=== PATIENT | male | born 1975 | race Caucasian/White ===

== ENCOUNTER → 2021-03-31 08:47 | Outpatient (CLI) | payer BC, SELFPAY ==
[2021-04-01 15:30] LABS: SARS-CoV-2 RNA PCR Positive
== END ==
PROVIDERS: PCP Physician Assistant; Visit Provider Physician Assistant
DX: U07.1 COVID-19 (principal)
CPT/HCPCS: C9803; U0003; U0005

== ENCOUNTER 2021-06-07 21:32 | Inpatient (IN) | payer BC, SELFPAY ==
--- NOTE | ~2021-06-07 | XR_ITS ---
XR chest 2V DATE: 06/07/2021 22:26 INDICATION: Chest pain, diaphoresis. Jaw pain. TECHNIQUE: PA and lateral views COMPARISON: 11/23/2010 portable AP chest FINDINGS: Heart size is normal. No hilar or mediastinal enlargement. No pulmonary infiltrate or consolidation, pleural effusion or pulmonary vascular congestion or pneumo thorax. There is thoracic and lumbar scoliosis. IMPRESSION: No active cardiopulmonary disease Reviewed, dictated and finalized at location A. UCTION SANITIZER
--- NOTE | ~2021-06-07 | US_ITS ---
EXAMINATION: US venous doppler [facility] DATE: 06/08/2021 09:59 INDICATION: Shortness of breath and chest pain TECHNIQUE: Carmen scale images without and with compression and Doppler images of the bilateral lower e xtremity veins were obtained. COMPARISON: None FINDINGS: The right common femoral vein, profunda femoral vein, femoral vein, popliteal vein, peroneal trunk, p osterior tibial veins, and greater saphenous vein are patent. The left common femoral vein, profunda femoral vein, femoral vein, popliteal vein, peroneal trunk, po sterior tibial veins, and greater saphenous vein are patent. IMPRESSION: 1. Patent bilateral lower extremity veins. No evidence of deep venous thrombosis. Reviewed, dictated and finalized at location B. MOGRAPHER IMPRESSION: 1. Patent bilateral lower extremity veins. No evidence of deep venous thrombosi s.
--- NOTE | ~2021-06-07 | CT_ITS ---
EXAMINATION: CTA chest PE protocol DATE: 06/08/2021 01:06 INDICATION: Chest pain. TECHNIQUE: Computed tomography angiography (CTA) of the chest was performed with 100 mL Omnipaque-350 intravenous contrast timed to evaluate the pulmonary arteries. Coronal maximum intensity projection 3D-reconstructions were created by the technologist. Automated exposure control and iterative reconst ruction technique were employed. The dose-length product was 832.67 mGy-cm. COMPARISON: CT abdomen and pelvis 03/31/2012 FINDINGS: The lungs demonstrate mild atelectasis. No pleural effusion. There is an 11 mm subcutaneous cyst in the superior anterior chest to the right of midline, likely a sebaceous cyst. There is a 1.9 cm mass in right tracheoesophageal groove. The heart size is normal. There are coronary artery calci fications. No pericardial effusion. There is an embolus in basilar right lower lobe. There is mild th oracic spondylosis. IMPRESSION: 1. Acute pulmonary embolus in basilar right lower lobe. 2. 1.9 cm mass in right tracheoesophageal groove. The differential diagnosis includes thyroid nodule and parathyroid adenoma. Correlate for laboratory evidence of hyperparathyroidism. Reviewed, dictated and finalized at location A. WORKER SUPERVISOR IMPRESSION: 1. Acute pulmonary embolus in basilar right lower lobe. 2. 1.9 cm mass in right tracheoesophageal groove. The differential diagnosis in cludes thyroid nodule and parathyroid adenoma. Correlate for laboratory evidenc e of hyperparathyroidism.
--- NOTE | 2021-06-07 21:37 | ECG_ITS ---
Measurements Intervals [place] Rate: 61 P: 45 TN: 183 QRS: -28 QRSD: 118 T: 74 QT: 363 QTc: 368 Interpretive Statements SINUS RHYTHM INCOMPLETE RIGHT BUNDLE BRANCH BLOCK DELAYED PRECORDIAL R/S TRANSITION ST-T WAVE ABNORMALITY IN HIGH LATERAL LEADS- CONSIDER ISCHEMIA ABNORMAL ECG Electronically Signed On 06-08-2021 6:36:58 BOBBIN MARKER by Sagar Decker D.O.
[2021-06-07 21:45] VITALS: BP 135/85; PULSE 62; RESP 16; TEMP 36.7; O2SAT 97
[2021-06-07] MEDS: ASPIRIN 81 MG CHEWABLE TABLET 324 MG PO (22:04)
[2021-06-07 22:09] LABS: Basophils Percent Auto 0.4 % (0.2-1.2); Eosinophils Absolute Auto 0.2 K/mm3 (0-0.3); Eosinophils Percent Auto 2.3 % (0-4.4); Hematocrit 41.3 % (42.0-52.0); Hemoglobin 15.1 g/dL (14.0-18.0); Immature Granulocyte Absolute 0.03 K/mm3 (0.00-0.031); Immature Granulocyte Percent A 0.3 % (0-0.5); Lymphocytes Absolute Auto 3.24 K/mm3 (0.9-3.2); Lymphocytes Percent Auto 32.3 % (18.3-44.2); Mean Corpuscular HGB Conc 36.6 g/dl (32-36); Mean Corpuscular Hemoglobin 32.2 pg (26-34); Mean Corpuscular Volume 88.1 fl (80-100); Mean Platelet Volume 9.7 fl (7.4-10.4); Monocytes Absolute Auto 0.7 K/mm3 (0.1-0.6); Neutrophils Absolute Auto 5.8 K/mm3 (1.3-6.7); Neutrophils Percent Auto 57.7 % (45.5-73.1); Platelet Count Result 325 k/mm3 (150-375); Red Blood Count 4.69 M/mm3 (4.6-6.20); Red Cell Distribution Width 12.8 % (11.5-14.5)
[2021-06-07 22:18] LABS: Prothrombin Time 13.4 Seconds (11.1-14.7)
[2021-06-07 22:19] LABS: Partial Thromboplastin Time 24.2 SECONDS (22.3-36.8)
--- NOTE | 2021-06-07 22:47 | ECG_ITS ---
Measurements Intervals [place] Rate: 62 P: -4 [place]: 194 QRS: -27 QRSD: 115 T: 70 QT: 356 QTc: 363 Interpretive Statements SINUS RHYTHM INCOMPLETE RIGHT BUNDLE BRANCH BLOCK DELAYED PRECORDIAL R/S TRANSITION BORDERLINE ST-T WAVE ABNORMALITY- HIGH LATERAL LEADS BORDERLINE ECG Electronically Signed On 06-08-2021 6:35:15 MATRIX INSPECTOR by Sagar Decker D.O.
[2021-06-07 22:50] LABS: Anion Gap 10 mmol/L (8-16); Blood Urea Nitrogen 23 mg/dL (9-20); Calcium 9.4 mg/dL (8.4-10.2); Carbon Dioxide 24 mmol/L (22-30); Chloride 105 mmol/L (98-107); Estimated CRCL calculation 126 ml/min; Estimated Glomerular Filt Rate > 60; Glucose 174 mg/dL (65-110); Potassium 3.8 mmol/L (3.4-5.0); Sodium 139 mmol/L (137-145)
--- NOTE | 2021-06-07 22:53 | ED.CHESTPAIN ---
HPI - Chest Pain General Chief Complaint: Chest Pain Stated Complaint: Chest pain Time Seen by Provider: 06/07/21 22:40 Source: RN notes reviewed History of Present Illness HPI narrative: Patient presents emergency department from home for chest pain. Patient states pain began approximately 8 PM this evening pain was like in the midsternal chest described as a pressure. Patient states is associated with diaphoresis as well as pain rating to his jaw and into his right arm. States pain is improved at this time but still is having mild pressure he denies any fevers or chills reports mild shortness of breath denies any abdominal pain states he was nauseous with the episode Related Data Allergies Allergy/AdvReac Type Severity Reaction Status Date / Time No Known Allergies Allergy Verified 06/07/21 22:03 Review of Systems Review of Systems: Gen.: Denies fevers or chills Eyes: Denies eye pain or visual change ENT: Denies congestion Respiratory: Reports shortness of CV: Reports chest pain GI: Denies abdominal pain emesis or diarrhea. Reports nausea Musculoskeletal: Denies back pain or muscle pain Neuro: Denies numbness, tingling, weakness or focal weakness Skin: Denies rash Except as documented, all other systems reviewed and negative [facility] Past Medical History Medical History (Updated 06/08/21 @ 04:26 by Doug Plummer DO) Anxiety Family History Family History (Updated 02/27/16 @ 23:21 by DOCTOR UNKNOWN) Mother Patient's mother is in good health Social History Social History Smoking status: Smoker, status unknown Alcohol intake: current Exam Narrative: APPEARANCE: No acute distress, nontoxic, resting in bed EYES: EOMI HEENT: Normocephalic, atraumatic, OMM RESPIRATORY: No respiratory distress Clear to auscultation bilaterally with no rhonchi wheezing or rales. CARDIOVASCULAR: Regular rate and rhythm without murmurs rubs or gallops. ABDOMINAL: Soft, nontender, nondistended, no rebound or guarding MUSCULOSKELETAl: Moves all extremities. No clubbing, cyanosis or edema. NEURO: Awake and alert. Following commands, speech normal, no focal deficits SKIN:: Warm, dry. No rashes lesions or abrasions PSYCHIATRIC: Normal affect/mood, Course Course Emergency Course: Reena with patient CT results no recent long trips bilateral calves are soft nontender no history of pulmonary embolisms in the past : Discussed with Dr. Hawthorne presentation work-up agrees with consult Discussed with Dr. Carmona presentation work-up agrees with admission at this time Discussed with patient and family results of workup and diagnosis. Discussed need for admission. Patient and family understand and agree to current treatment plan Vital Signs Vital signs: Vital Signs Temperature 98.0 F 06/07/21 21:45 Pulse Rate 62 06/07/21 21:45 Respiratory Rate 16 06/07/21 21:45 Blood Pressure 135/85 06/07/21 21:45 Pulse Oximetry 97 06/07/21 21:45 Temperature 98.0 F 06/07/21 21:45 Pulse Rate 57 L 06/08/21 01:42 Respiratory Rate 18 06/08/21 01:42 Blood Pressure 107/65 06/08/21 01:42 Pulse Oximetry 100 06/08/21 01:42 MDM - Chest Pain MDM Narrative Medical decision making narrative: Patient had sudden onset of pain right chest going into his jaw and arm he did have some discomfort in the ER 2 EKGs were done upon initial arrival showed ST elevation work-up was performed initial troponin was it within normal limits pain minimally improved with morphine he was given nitro which did not improve concern at that time was for possible aneurysms patient had negative troponin and a CTA was obtained that shows pulmonary embolism in the right side there is no heart strain patient second troponin came back elevated at this time question whether elevation is secondary to strain or possible coexisting cardiac event will admit to the hospital for further evaluation mau nunes
[2021-06-07 23:02] LABS: Troponin I < 0.012 ng/mL (0.000-0.034)
[2021-06-07 23:12] LABS: Alanine Aminotransferase 20 U/L (4-50); Albumin Level 4.1 g/dL (3.5-5.1); Alkaline Phosphatase 48 U/L (38-126); Aspartate Amino Transferase 20 U/L (17-59); Bilirubin,Total 0.4 mg/dL (0.2-1.3); Lipase 76 U/L (23-300)
[2021-06-07] MEDS: MORPHINE SULFATE (*CRX) 2 MG/ML INJ IV PUSH (23:14)
[2021-06-08] VITALS (27 sets, daily range): BP systolic 99–119; BP diastolic 63–83; PULSE 57–90; RESP 15–25; O2SAT 97–100; BMI 39.4
[2021-06-08 01:17] LABS: Troponin I 0.121 ng/mL (0.000-0.034)
[2021-06-08] MEDS: NITROGLYCERIN OINTMENT 1 INCH DOSE TRANSDERM (01:22)
[2021-06-08] MEDS: HEPARIN SODIUM 5,000 UNITS/ML VIAL 7000 UNITS IV PUSH ×2 (03:07→09:27)
[2021-06-08] MEDS: HEPARIN SOD/D5W 100 UNITS/ML 25,000 UNITS/250 ML BAG 15 UNITS IV CONT (03:08)
[2021-06-08 03:59] LABS: D Dimer 0.27 ug/mL (<0.48)
--- NOTE | 2021-06-08 07:53 | PC.NURSE ---
Breakfast tray ordered for pt.
[2021-06-08] MEDS: NICOTINE (*PBKC) 21 MG PATCH 1 PATCH (07:59)
--- NOTE | 2021-06-08 08:59 | PM.IMHP ---
H&P: HPI History of Present Illness Date/Time: 06/08/21 08:59 Chief Complaint: Chest pain Narrative: Patient presents to the emergency department from home with chest pain that started about 8:00 p.m. last evening. The chest pain was midsternal in location radiating history are right arm and his jaw and he had profuse sweating at that time. He never had similar benefit in his past. The pain was dull in character he came to the ED for evaluation. He was given some morphine that helped with his pain and completed resolved since then. He has not had anything required for his pain since then. He was also given a nitroglycerin patch in the ER last night. His EKG had some nonspecific ST-T changes in the high lateral leads we did not have older EKG prior to this. His initial troponin was negative further testing was done with D-dimer which was negative a chest x-ray was negative a CTA was eventually done which showed right lower lobe pulmonary embolism. He has been started on heparin drip and is admitted for further evaluation and management. Subsequent workup with serial troponin showed dex troponin raised up to 0.1-1 and the 3rd set went up to 4.59 suggesting of a non ST-elevation CO. he denies any cough or shortness of breath nausea vomiting. He denies any history of coronary artery disease prior to this admission. Review of Systems Review of Systems: - CONSTITUTIONAL: Denies weight loss, fever and chills. - HEENT: Denies changes in vision and hearing - RESPIRATORY: Denies SOB and cough. - CV: Denies palpitations and reports CP. - GI: Denies abdominal pain, nausea, vomiting and diarrhea. - : Denies dysuria and urinary frequency. - MSK: Denies myalgia and joint pain. - SKIN: Denies rash and pruritus. - NEUROLOGICAL: Denies headache and syncope. - PSYCHIATRIC: Denies recent changes in mood. Denies anxiety and depression. All systems reviewed & are unremarkable except as noted in HPI and below Constitutional: Constitutional: Reports fatigue and Reports weakness Neurologic: Reports weakness Endocrine: Endocrine: Reports fatigue [facility] Past Medical History Medical History (Updated 06/08/21 @ 16:23 by Dylan Kinsey MD) Anxiety Family History Family History (Updated 02/27/16 @ 23:21 by DOCTOR UNKNOWN) Mother Patient's mother is in good health Social History Social History Smoking status: Current every day smoker Tobacco type: e-cigarettes/vaping Alcohol intake: current Drinks per week: 6 Substance use: never Spiritual care concerns: No Meds Home Medications and Allergies Home Medications Medication Instructions Recorded Confirmed Type alprazolam 0.5 mg PO BID PRN 06/08/21 06/08/21 History Allergies Allergy/AdvReac Type Severity Reaction Status Date / Time No Known Allergies Allergy Verified 06/07/21 22:03 Vital Signs Vital Signs - 24 hr 06/07/21 21:45 06/08/21 00:44 06/08/21 01:42 Temperature 98.0 F Pulse Rate 62 90 57 L Respiratory Rate 16 18 18 Blood Pressure 135/85 119/83 107/65 Pulse Oximetry 97 100 100 06/08/21 05:39 06/08/21 07:35 06/08/21 08:41 Temperature Pulse Rate 61 63 58 L Respiratory Rate 16 17 18 Blood Pressure 104/65 100/68 103/75 Pulse Oximetry 98 99 100 Exam Narrative: GENERAL: The patient is well developed, not in acute distress HEENT: Nonicteric sclerae, PERRLA, EOMI. Oropharynx clear. Moist mucous membranes. Conjunctivae appear well perfused. CHEST: Chest wall is nontender. HEART: Regular rate and rhythm without murmur, rubs, or gallops LUNGS: Clear to auscultation bilaterally. no respiratory distress ABDOMEN: Soft, positive bowel sounds, non-tender, no organomegaly. SKIN: No rash, no excessive bruising, petechiae, or purpura. NEUROLOGIC: Cranial nerves II-XII intact, alert and oriented x 3, no gross motor deficits EXTREMITIES: no edema, cyanosis or clubbing Left
--- NOTE | 2021-06-08 09:07 | PC.NURSE ---
Hospitalist at bedside for pt assessment.
[2021-06-08 09:10] LABS: Partial Thromboplastin Time 51.3 SECONDS (22.3-36.8)
--- NOTE | 2021-06-08 09:45 | ADMGEN ---
This patient, Doug Corbett, was admitted to Virtual Bed IMU-3. Patient/family oriented to hospital policies and general routines including ID bracelet, bed and alarms, visiting hours, pain management, procedures, bathroom and other care routines, personal items, smoking policy, room service/diet, and visiting hours. Information on how to activate the Rapid Response Team has been discussed. Patient/Family are encouraged to report perceived risks to care and to ask questions if they do not understand what they are told or what they should do.
--- NOTE | 2021-06-08 09:52 | PC.NURSE ---
Ultrasound at bedside.
--- NOTE | 2021-06-08 11:57 | ECG_ITS ---
Measurements Intervals [place] Rate: 63 P: 19 [place]: 178 QRS: -27 QRSD: 118 T: 56 QT: 362 QTc: 371 Interpretive Statements SINUS RHYTHM INTRAVENTRICULAR CONDUCTION DELAY DELAYED PRECORDIAL R/S TRANSITION BORDERLINE ST ABNORMALITY- HIGH LATERAL LEADS BORDERLINE ECG Electronically Signed On 06-08-2021 12:01:01 HAND COLLATOR by Sagar Decker D.O.
--- NOTE | 2021-06-08 15:53 | PM.CNCAR ---
Assessment and Plan Additional Plan 45-year-old man with: Chest pain syndrome starting last evening with significant troponin rise and no significant ECG abnormalities. The patient certainly meets the criteria of acute coronary syndrome/non ST elevation VT. He does have a small right lower lobe PE based on his CT of the chest. This is a small PE if in fact this is real and I do not think it is likely to be the cause of this sort of troponin rise. For this reason I will recommend pursuing a coronary angiogram he is asymptomatic currently set this up for tomorrow morning. His heparin will be discontinued shortly before bringing him to the flue dust laborer further recommendations will be pending completion of that exam. Anselmo Rod MD [facility] History of Present Illness History of Present Illness Consult date/time: 06/08/21 15:53 Consult reason: chest pain Reason For Visit: Pulmonary embolism/elevated troponin/chest pain Narrative: This is a very pleasant 45-year-old man I am seeing in the emergency room at the request of the hospitalist because of chest pain and a rise in the troponin level that was noted following evaluation in the emergency department. The patient came to the emergency department last night when he developed symptoms at about 8:00 p.m. at home he was simply relaxing and exam to experience chest pain that he describes as a central substernal pressure-like sensation that then intensified and was associated with radiation into the neck and the jaw and then down to the right arm. The patient decided to take some antacids thinking this might be dyspepsia and had minimal improvement in the symptoms but when they persisted he came to the emergency room for evaluation. In the emergency department he has had a series of ECGs done which do not demonstrate any acute ST segment deviation. He has had 3 sets of troponins done the 1st which was normal and then the 3rd of which has risen to 4.9. The patient is asymptomatic now and feels well he has been sitting in the emergency room all day waiting for a bed upstairs and still has not received a bed assignment. Presumably because of the initial lack of evidence of ACS he had a CTA done of the chest which was interpreted showing a subsegmental pulmonary embolism in the right lower lobe. Venous Dopplers were done which are negative for DVT. The patient does not have any cardiac history prior to this he does not exercise in a structured fashion in any way but he does have an active lifestyle and does not notice any prep plaque problem with exertion in the way of chest pain pressure or heaviness. He denies any palpitations orthopnea or PND. Does not have any accumulating lower extremity edema. He does not believe he has any ongoing significant medical problems he has a congenital absence of the left arm. 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 Review of Systems Constitutional: Constitutional: Reports no additional constitutional complaints Eyes: Eyes: Reports no additional eye complaints ENT: Reports system reviewed and no additional complaints, except as documented Cardiovascular: Cardiovascular: Reports as per HPI Respiratory: Respiratory: Reports as per HPI Gastrointestinal: Gastrointestinal: Reports no additional gastrointestinal complaints Musculoskeletal: Musculoskeletal: Reports no additional musculoskeletal complaints Integumentary/Breasts: Skin/Breast: Reports system reviewed and no additional complaints, except as docu Neurologic: Reports system reviewed and no additional complaints, except as documented Endocrine: Endocrine: Reports no additional endocrine complaints Hematologic/Lymphatic: Hematologic/Lymphatic: Reports no additional hematologic/lymphatic complaints Allergic/Immunologic: Allergic/Immunologic: Reports no additional allergic/immunologic complaints [facility] Past Medical History Medical History (Updated 06/08/21 @ 04:26 by Doug Plummer DO) Anxiet
[2021-06-08 16:10] LABS: Partial Thromboplastin Time 83.4 SECONDS (22.3-36.8)
[2021-06-08] MEDS: HEPARIN SOD/D5W 100 UNITS/ML 25,000 UNITS/250 ML BAG 18 UNITS IV CONT (18:10)
--- NOTE | 2021-06-08 21:37 | PC.NURSE ---
1900 assumed care of patient resp even unlabored a & o x 3
[2021-06-08] MEDS: ALPRAZolam (*CRX) 0.5 MG TABLET PO (23:22)
[2021-06-09] VITALS (22 sets, daily range): BP systolic 100–137; BP diastolic 52–100; PULSE 16–92; RESP 15–20; TEMP 36.4–37.4; O2SAT 97–100
--- NOTE | 2021-06-09 | ECHO_ITS ---
Patient Info Name: Doug Corbett Age: 45 years : 1975 Gender: Male Ht: 67 in Wt: 253 lbs BSA: 2.38 m2 HR: 64 bpm BP: 103 / 61 mmHg Heart Rhythm: Sinus Rhythm Technical Quality: Good Exam Date: 06/09/2021 1:29 PM Exam Location: [facility] Card Pulmonary Patient Status: Inpatient Admit Date: 06/08/2021 Staff Ordering Physician: Dylan Kinsey MD Spar Machine Operator: Sabrina Garcia RDCS Attending Provider: Anne Marie Reeves PA-C Exam Type: CA echo doppler color flow Study Info Indications - ELEVATED TROPONIN Complete two-dimensional, color flow and Doppler transthoracic echocardiogram is performed. Summary 1. Complete two-dimensional, color flow and Doppler transthoracic echocardiogram is performed. 2. Normal left ventricular size with mild concentric hypertrophy. There is good systolic function of all segments with no segmental wall motion abnormalities. The ejection fraction was calculated to be 60% and visually is 60-65%. Normal diastolic function. 3. Left atrial chamber dimension is mildly enlarged. 4. No pulmonary hypertension, estimated pulmonary arterial systolic pressure is 25 mmHg. 5. No significant valve disease. 6. Normal sinus rhythm. Left Ventricle Left ventricular chamber dimension is moderately enlarged. Left ventricular systolic function is normal, estimated at 60-65%. There is mildly increased left ventricular wall thickness. Left ventricular septal wall motion is normal. The left ventricular diastolic function is normal. Right Ventricle Right ventricular chamber dimension is normal. Right ventricular systolic function is normal. Left Atria Left atrial chamber dimension is mildly enlarged. Right Atria Right atrial chamber dimension is normal. Aortic Valve The aortic valve is trileaflet. There is no aortic valve sclerosis. There is no aortic valve stenosis. There is no aortic valve regurgitation. Pulmonic Valve The pulmonic valve is normal. There is no pulmonic valve stenosis. There is no pulmonic regurgitation. Mitral Valve The mitral valve has normal leaflets. There is no mitral valve stenosis. There is trace mitral valve regurgitation. Tricuspid Valve The tricuspid valve leaflets are normal. There is no significant tricuspid valve stenosis. There is trace tricuspid valve regurgitation. No pulmonary hypertension, estimated pulmonary arterial systolic pressure is 25 mmHg. There is no tricuspid valve calcification. Pericardium/Pleural The pericardium appears normal. There is no pericardial effusion. Inferior Vena Cava Normal inferior vena cava with >50% collapse upon inspiration consistent with Empty right atrial pressure, 10 mmHg. Aorta The aortic root size at the sinus of Valsalva is normal. The prox ascending aorta size is normal. Left Ventricular Outflow Tract Name Value Normal LVOT 2D LVOT Diameter 2.4 cm LVOT Doppler LVOT Peak Gradient 4 mmHg LVOT Mean Gradient 2 mmHg LVOT VTI 19 cm LVOT VTI/AV VTI Ratio 0.9
[2021-06-09] MEDS: HEPARIN SODIUM 5,000 UNITS/ML VIAL 3500 UNITS IV PUSH (00:23)
[2021-06-09 06:51] LABS: Basophils Absolute Auto 0.1 K/mm3 (0.0-0.1); Basophils Percent Auto 0.6 % (0.2-1.2); Eosinophils Absolute Auto 0.2 K/mm3 (0-0.3); Eosinophils Percent Auto 1.4 % (0-4.4); Immature Granulocyte Absolute 0.03 K/mm3 (0.00-0.031); Immature Granulocyte Percent A 0.3 % (0-0.5); Lymphocytes Absolute Auto 3.27 K/mm3 (0.9-3.2); Mean Corpuscular HGB Conc 35.7 g/dl (32-36); Mean Corpuscular Hemoglobin 31.9 pg (26-34); Mean Corpuscular Volume 89.4 fl (80-100); Mean Platelet Volume 10.1 fl (7.4-10.4); Neutrophils Absolute Auto 6.1 K/mm3 (1.3-6.7); Neutrophils Percent Auto 57.7 % (45.5-73.1); Platelet Count Result 290 k/mm3 (150-375); White Blood Count 10.6 K/mm3 (4.5-10.0)
[2021-06-09 07:01] LABS: Alanine Aminotransferase 28 U/L (4-50); Albumin Level 3.9 g/dL (3.5-5.1); Alkaline Phosphatase 49 U/L (38-126); Anion Gap 6 mmol/L (8-16); Aspartate Amino Transferase 68 U/L (17-59); Bilirubin,Total 0.7 mg/dL (0.2-1.3); Blood Urea Nitrogen 13 mg/dL (9-20); Carbon Dioxide 27 mmol/L (22-30); Chloride 105 mmol/L (98-107); Cholesterol 176 mg/dL (0-200); Estimated CRCL calculation 127 ml/min; Estimated Glomerular Filt Rate > 60; Glucose 108 mg/dL (65-110); HDL Direct 32 mg/dL; Potassium 4.2 mmol/L (3.4-5.0); Sodium 138 mmol/L (137-145); Triglycerides 200 mg/dL (<150)
[2021-06-09 07:11] LABS: LDL Cholesterol Direct 112 mg/dL
[2021-06-09 08:03] LABS: Partial Thromboplastin Time 95.5 SECONDS (22.3-36.8)
[2021-06-09] MEDS: ASPIRIN 325 MG TABLET PO (08:22)
[2021-06-09] MEDS: ROSUVASTATIN 10 MG TABLET PO (08:22)
[2021-06-09] MEDS: METOPROLOL SUCCINATE EXT REL 25 MG TABCR PO (08:22)
[2021-06-09] MEDS: NICOTINE (*PBKC) 21 MG PATCH 1 PATCH TRANSDERM (08:22)
--- NOTE | 2021-06-09 09:54 | WPDMODSED ---
Moderate Sedation Note-Pt Data Patient Data Allergies Allergy/AdvReac Type Severity Reaction Status Date / Time No Known Allergies Allergy Verified 06/07/21 22:03 Home Medications Medication Instructions Recorded Confirmed Type alprazolam 0.5 mg PO BID PRN 06/08/21 06/08/21 History Current Medications: Active Medications Alprazolam (Alprazolam (*Crx) 0.5 Mg Tablet) 0.5 mg PO BID PRN PRN Reason: Anxiety Last Admin: 06/08/21 23:22 Dose: 0.5 mg Documented by: Aspirin (Aspirin 325 Mg Tablet) 325 mg PO DAILY@0800 [facility] Last Admin: 06/09/21 08:22 Dose: 325 mg Documented by: Heparin Sodium (Porcine) (Heparin Sodium 5,000 Units/Ml Vial) 7,000 units IV PUSH PRN PRN PRN Reason: aPTT less than 55 seconds Last Admin: 06/08/21 09:27 Dose: 7,000 units Documented by: Heparin Sodium (Porcine) (Heparin Sodium 5,000 Units/Ml Vial) 3,500 units IV PUSH PRN PRN PRN Reason: aPTT 55 - 70 seconds Last Admin: 06/09/21 00:23 Dose: 3,500 units Documented by: Heparin Sodium/Dextrose (Heparin Sodium/D5w 100 Units/Ml) 25,000 units in 250 mls @ 20 mls/hr IV CONT .[id number] [facility]; Protocol Last Titration: 06/09/21 00:26 Dose: 2,000 units/hr, 20 mls/hr Documented by: Metoprolol Succinate (Metoprolol Succinate Ext Rel 25 Mg Tabcr) 25 mg PO [facility] Last Admin: 06/09/21 08:22 Dose: 25 mg Documented by: Nicotine (Nicotine (*Pbkc) 21 Mg Patch) 1 patch TRANSDERM [facility] Last Admin: 06/09/21 08:22 Dose: 1 patch Documented by: Rosuvastatin Calcium (Rosuvastatin 10 Mg Tablet) 10 mg PO [facility] Last Admin: 06/09/21 08:22 Dose: 10 mg Documented by: Sedation/Anesthesia: No previous sedation/anesthesia problems (including family history). PMFSH Past Medical History Medical History (Updated 06/08/21 @ 16:23 by Dylan Kinsey MD) Anxiety Family History Family History (Updated 02/27/16 @ 23:21 by DOCTOR UNKNOWN) Mother Patient's mother is in good health Social History Social History Smoking status: Current every day smoker Tobacco type: e-cigarettes/vaping Alcohol intake: current Drinks per week: 6 Substance use: never Spiritual care concerns: No Mod Sed Physical Exam Physical Exam Pre Procedural Exam: Normal: Airway Hours since solid foods: 10 Hours since liquid intake: 10 Mallampati Classification: class II Internal Medicine - PN: Obj Da Vital Signs Vital Signs: Vital Signs - 24 hr 06/08/21 10:53 06/08/21 14:26 06/08/21 14:28 Temperature Pulse Rate 60 63 68 Respiratory Rate 18 15 Blood Pressure 99/63 L 115/73 Pulse Oximetry 97 100 06/08/21 14:30 06/08/21 14:45 06/08/21 15:00 Temperature Pulse Rate 63 59 L 66 Respiratory Rate Blood Pressure Pulse Oximetry 06/08/21 15:15 06/08/21 15:41 06/08/21 15:45 Temperature Pulse Rate 82 75 72 Respiratory Rate Blood Pressure Pulse Oximetry 06/08/21 16:02 06/08/21 16:20 06/08/21 16:32 Temperature Pulse Rate 71 70 68 Respiratory Rate Blood Pressure Pulse Oximetry 06/08/21 16:49 06/08/21 17:05 06/08/21 17:21 Temperature Pulse Rate 88 65 68 Respiratory Rate 20 22 H Blood Pressure 103/75 Pulse Oximetry 99 06/08/21 17:30 06/08/21 18:00 06/08/21 18:25 Temperature Pulse Rate 67 64 65 Respiratory Rate 20 20 Blood Pressure Pulse Oximetry 06/08/21 18:30 06/08/21 18:46 06/08/21 22:15 Temperature Pulse Rate 61 82 62 Respiratory Rate 25 H 18 Blood Pressure 101/69 Pulse Oximetry 06/09/21 00:17 06/09/21 00:26 06/09/21 02:00 Temperature 36.4 C Pulse Rate 65 66 58 L Respiratory Rate 20 Blood Pressure 100/52 L Pulse Oximetry 99 06/09/21 04:00 06/09/21 06:00 06/09/21 08:00 Temperature 36.6 C 36.9 C Pulse Rate 61 58 L 64 Respiratory Rate 18 18 Blood Pressure 103/61 104/75 Pulse Oximetry 97 97 06/09/21 08:22 Temperature Pulse Rate 72 Respiratory R
--- NOTE | 2021-06-09 09:55 | WPDHPUPDATE1 ---
History and Physical Update Update Date/Time: 06/09/21 09:55 History and Physical has been reviewed, including an updated exam of the patient. There are NO changes in the patient's condition. Risks, benefits, and alternatives have been discussed and questions answered. Patient agrees to proceed with procedure.
--- NOTE | 2021-06-09 11:16 | WPDCARDPROC ---
Cardiac Cath Procedure Note Date of procedure:: 06/09/21 Performing physician:: Darwin Rangel MD Procedure Procedure performed:: CARDIAC CATHETERIZATION AND PERCUTANEOUS CORONARY INTERVENTION REPORT DATE OF PROCEDURE: 06/09/2021 INDICATION FOR PROCEDURE: acute coronary syndrome - non ST-elevation myocardial infarction BRIEF CLINICAL HISTORY: 45-year-old male with no known prior cardiac history; history of tobacco use currently vaping. Patient presents to [facility] Emergency Room on 06/07/2021 with complaints of chest pain associated with diaphoresis. CT scan of the chest in addition to other findings reportedly showed acute pulmonary embolus in basilar right lower lobe. Venous Dopplers were negative for DVT. EKG showed sinus rhythm without any acute ST segment abnormality. First troponin was negative, subsequent troponins were positive with current peak troponin level of 4.5. He was evaluated by Cardiology, and his clinical presentation was also suggestive of acute coronary syndrome. Based on this, patient was referred for cardiac catheterization. Benefits and risks of the procedure were discussed with the patient in depth, and informed consent was obtained prior to the procedure. Risks of the procedure include but are not limited to vascular complications including groin hematoma, retroperitoneal bleed, vessel perforation; periprocedural WI, cardiac arrhythmias, stroke, contrast induced nephropathy, and . After discussing all the benefits, risks and alternatives, patient was willing to proceed with the procedure. PROCEDURES PERFORMED: 1. Left heart catheterization- Selective left and right coronary angiogram; left ventriculogram and hemodynamic assessment 2. Percutaneous coronary intervention- Balloon angioplasty and stenting of subtotal occlusion in the mid RCA using a 4.0 x 22 mm [employer] sirolimus eluting stent; balloon angioplasty of RPL branch. 3. Selective right common femoral angiogram and deployment of Angio-Seal hemostatic device 4. Moderate sedation-CPT code 76640 MODERATE SEDATION: Midazolam 3 mg; fentanyl 75 mcg. Start time 1022 , Stop time 1109 ; Total uhdc-pt-ydal time 47 minutes; Jerica Hansen RN was trained observer for moderate sedation. ACCESS SITE: Right common femoral artery PROCEDURE NOTE: After obtaining informed consent, patient was brought to catheterization lab and prepped and draped in a usual sterile manner. After local anesthesia with lidocaine, right common femoral artery access was taken with micropuncture needle followed by insertion of a 5 Nepalese sheath. Selective left and right coronary angiogram was performed using 5 Nepalese JL4 and JR4 catheters respectively. Orthogonal views were taken. Next, a 5 Nepalese pigtail catheter was advanced in the LV cavity and was flushed with normal saline. LV pressure measurement was performed. After this, left ventriculogram was performed. The catheter was flushed again, and gradient across the aortic valve was measured on the pullback of the catheter. Selective right common femoral angiogram was performed after PCI followed by successful deployment of Angio-Seal vascular closure device. Patient tolerated procedure well without any immediate procedure related complications. FINDINGS: LEFT MAIN CORONARY: The left main coronary artery is a medium to large caliber vessel with minimal narrowing at the ostium. The vessel bifurcates into LAD and left circumflex branches. LEFT ANTERIOR DESCENDING ARTERY: The LAD is a medium to large caliber vessel in the proximal segment with minor irregularities; tapers distally , becomes a diminutive vessel distally and reaches LV apex. there is mild plaque in the mid segment. Diagonal branches are small to medium caliber vessels without significant focal stenosis. LEFT CIRCUMFLEX ARTERY: The left circumflex artery is a large caliber vessel. It gives rise to small caliber OM1 and OM2 branches, a large caliber OM3 branc
--- NOTE | 2021-06-09 12:30 | SUR.PHASEII ---
report given to jaymie weir. patient transfered via stretcher back to room
--- NOTE | 2021-06-09 12:38 | PM.IMPN ---
Progress Note: A&P Assessment and Plan (1) Non-ST elevation SC (NSTEMI): Code(s): I21.4 - Non-ST elevation (NSTEMI) myocardial infarction Status: Acute Assessment and Plan: History of premature coronary artery disease in family. Chest pain typical symptoms suggestive of acute coronary syndrome. Resolved now with nitro patch aspirin and morphine that he received in the ER. Serial troponin cornelio to 4.5 suggestive of acute coronary syndrome/non ST elevation SC. On heparin drip aspirin mildly bradycardic so will avoid beta-blockade. Cardiology has been consulted and going to preform cardiac catheterization today. Pending cardiac cath results. (2) Pulmonary embolism: Code(s): I26.99 - Other pulmonary embolism without acute cor pulmonale Status: Acute Assessment and Plan: Acute right lower lobe pulmonary embolism on heparin drip until after cardiac cath today. Venous duplex showed patent bilateral lower extremity veins. No evidence of deep venous thrombosis. Will get echocardiogram Has sedentary job, tobacco abuse, no history of PE/DVT in the past (3) Chest pain: Code(s): R07.9 - Chest pain, unspecified Status: Acute (4) Elevated troponin: Code(s): R77.8 - Other specified abnormalities of plasma proteins Status: Acute Additional Plan # DVT prophylaxis: Heparin drip # Code status: Full code status Time Spent With Patient Time with patient: 25 - 35 minutes Subjective Date/time seen: 06/09/21 12:38 Interval history: Date of Service 06/09/21: Patient feeling well at this time. Denies anymore chest pain currently. He denies SOB, cough, fever, chills, nausea, vomiting, abdominal pain, leg swelling, calf pain or any other symptoms at this time. Review of Systems Review of Systems: All systems reviewed & are unremarkable except as noted in HPI and below Exam Narrative: General: 45-year-old man laying flat in bed. Appears comfortable. In no acute distress. Skin: No jaundice or cyanosis. Good skin turgor. Neck: Full range of motion. Supple. Respiratory: Lungs are clear to auscultation bilaterally. No wheezing, rales or rhonchi. No bony chest wall tenderness. Cardiovascular: The heart has a regular rate and rhythm without murmur. Tele shows NSR rate 73 bpm. 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 Lower extremities: No lower extremity edema. Distal pulses are easily palpated. No calf tenderness to palpation. Gastrointestinal: The abdomen is soft, nontender and nondistended with active bowel sounds. Psychiatric: Lucid and oriented. Memory intact. Neurologic: No focal deficits. Speech is clear. No facial drooping. Objective Data Vital Signs Vital Signs: Vital Signs - 24 hr 06/08/21 14:26 06/08/21 14:28 06/08/21 14:30 Temperature Pulse Rate 63 68 63 Respiratory Rate 15 Blood Pressure 115/73 Pulse Oximetry 100 06/08/21 14:45 06/08/21 15:00 06/08/21 15:15 Temperature Pulse Rate 59 L 66 82 Respiratory Rate Blood Pressure Pulse Oximetry 06/08/21 15:41 06/08/21 15:45 06/08/21 16:02 Temperature Pulse Rate 75 72 71 Respiratory Rate Blood Pressure Pulse Oximetry 06/08/21 16:20 06/08/21 16:32 06/08/21 16:49 Temperature Pulse Rate 70 68 88 Respiratory Rate Blood Pressure Pulse Oximetry 06/08/21 17:05 06/08/21 17:21 06/08/21 17:30 Temperature Pulse Rate 65 68 67 Respiratory Rate 20 22 H Blood Pressure 103/75 Pulse Oximetry 99 06/08/21 18:00 06/08/21 18:25 06/08/21 18:30 Temperature Pulse Rate 64 65 61 Respiratory Rate 20 20 Blood Pressure Pulse Oximetry 06/08/21 18:46 06/08/21 22:15 06/09/21 00:17 Temperature Pulse Rate 82 62 65 Respiratory Rate 25 H 18 Blood Pressure 101/69 Pulse Oximetry 06/09/21 00:26 06/09/21 02:00 06/09/21 04:00 Temperature 97.6 F 97.8 F Pulse Rate 66 58 L 61 Respiratory Rate 20 1
[2021-06-09] MEDS: ALPRAZolam (*CRX) 0.5 MG TABLET PO ×2 (13:26→22:35)
[2021-06-09] MEDS: SODIUM CHLORIDE 0.9% IV 1,000 ML 125 ML IV CONT (13:26)
[2021-06-09 15:43] LABS: Vitamin D 25 Hydroxy 30.6 ng/mL
[2021-06-09] MEDS: TICAGRELOR 90 MG TABLET PO (22:35)
[2021-06-10] VITALS: PULSE 64
[2021-06-10 02:00] VITALS: PULSE 64
[2021-06-10 04:00] VITALS: BP 118/60; PULSE 64; PULSE 75; RESP 18; TEMP 36.6; O2SAT 97
[2021-06-10 05:21] LABS: Hematocrit 41.5 % (42.0-52.0); Hemoglobin 14.9 g/dL (14.0-18.0); Mean Corpuscular HGB Conc 35.9 g/dl (32-36); Mean Corpuscular Hemoglobin 32.2 pg (26-34); Mean Corpuscular Volume 89.6 fl (80-100); Mean Platelet Volume 9.7 fl (7.4-10.4); Platelet Count Result 291 k/mm3 (150-375); Red Blood Count 4.63 M/mm3 (4.6-6.20); Red Cell Distribution Width 12.8 % (11.5-14.5); White Blood Count 11.3 K/mm3 (4.5-10.0)
[2021-06-10 05:37] LABS: Anion Gap 7 mmol/L (8-16); Blood Urea Nitrogen 13 mg/dL (9-20); Carbon Dioxide 26 mmol/L (22-30); Chloride 105 mmol/L (98-107); Estimated CRCL calculation 122 ml/min; Estimated Glomerular Filt Rate > 60; Glucose 98 mg/dL (65-110); Sodium 138 mmol/L (137-145)
[2021-06-10 06:00] VITALS: PULSE 65
[2021-06-10 08:00] VITALS: BP 103/57; PULSE 71; RESP 12; TEMP 37; O2SAT 99
[2021-06-10] MEDS: NICOTINE (*PBKC) 21 MG PATCH 1 PATCH TRANSDERM (08:42)
[2021-06-10] MEDS: TICAGRELOR 90 MG TABLET PO (08:42)
[2021-06-10 09:02] LABS: Glucose Point of Care 101 mg/dl (65-105)
[2021-06-10] MEDS: ATORVASTATIN 40 MG TABLET 80 MG PO (09:05)
[2021-06-10] MEDS: ASPIRIN 81 MG ENTERIC TABLET PO (09:05)
[2021-06-10] MEDS: METOPROLOL TARTRATE 12.5 MG TABLET PO (09:06)
[2021-06-10 10:00] VITALS: PULSE 74
--- NOTE | 2021-06-10 10:36 | PM.PNCARD ---
Progress Note: A&P Assessment and Plan (1) Non-ST elevation NM (NSTEMI): Code(s): I21.4 - Non-ST elevation (NSTEMI) myocardial infarction Status: Acute Assessment and Plan: Presented to the emergency room with complaints of chest pain and diaphoresis. EKG showed sinus rhythm without any acute ST segment abnormalities. His 1st troponin was negative but subsequent troponin levels were positive with a peak of 4.59. Based on his clinical presentation and these findings it was recommended that he have a cardiac catheterization. Coronary angiography revealed: 1) 99% hazy stenosis mid RCA; 100% thrombotic occlusion RPL branch 2) minor irregularities proximal LAD; mild plaque mid LAD 3) 20-40% eccentric stenosis mid LCX 4) Preserved overall LV systolic function, ejection fraction more than 70%, LVEDP 16 mmHg. 5) PCI -balloon angioplasty and stenting of subtotal occlusion in the mid RCA using a 4.0 x 22 mm [employer]siro sirolimus eluting stent; balloon angioplasty of proximal RPL branch. Initiated on dual anti-platelet therapy with aspirin and Brilinta. Continue atorvastatin Continue metoprolol (2) Chest pain: Code(s): R07.9 - Chest pain, unspecified Status: Acute Assessment and Plan: Presented with unstable angina. Has not had any recurrence of chest pain following stenting of the RCA yesterday. (3) Elevated troponin: Code(s): R77.8 - Other specified abnormalities of plasma proteins Status: Acute Assessment and Plan: This did represent ACS. Patient was found 99% stenosis of the mid RCA which was stented. Subjective Date/time seen: 06/10/21 10:36 Cardiology follow up for NSTEMI, CAD Date of service 06/10/2021: Patient is feeling well today. He has been up walking around in the halls and has not had any problems with this. He denies any chest pain, shortness of breath. He does note some mild tenderness on his right groin arterial access site but otherwise has no complaints. He is stable and appropriate for discharge home today from a cardiac perspective. Review of Systems Constitutional: Constitutional: Reports no additional constitutional complaints Eyes: Eyes: Reports no additional eye complaints ENT: Reports system reviewed and no additional complaints, except as documented Cardiovascular: Cardiovascular: Reports as per HPI Respiratory: Respiratory: Reports as per HPI Gastrointestinal: Gastrointestinal: Reports no additional gastrointestinal complaints Musculoskeletal: Musculoskeletal: Reports no additional musculoskeletal complaints Integumentary/Breasts: Skin/Breast: Reports system reviewed and no additional complaints, except as docu Neurologic: Reports system reviewed and no additional complaints, except as documented Endocrine: Endocrine: Reports no additional endocrine complaints Hematologic/Lymphatic: Hematologic/Lymphatic: Reports no additional hematologic/lymphatic complaints Allergic/Immunologic: Allergic/Immunologic: Reports no additional allergic/immunologic complaints Exam Const: General: comfortable and no acute distress Other: Middle-aged man standing at the bedside. Alert oriented. Pleasant and. HENMT: Mouth: Yes moist mucous membranes Eyes: Sclera: sclerae normal Pupils: Equal, round and reactive pupils present Neck: Neck: supple and no JVD Resp: Effort & Inspection: normal respiratory effort Auscultation: clear to auscultation bilaterally Cardio: Rate: regular rate Rhythm: regular rhythm Heart sounds: no gallops GI: GI Palp: Yes Soft to palpation Auscultation: normal bowel sounds Skin: General skin exam: normal color Other: Right groin arterial access site free from bleeding, hematoma, pain, swelling. No bruit. Neuro: General: patient oriented x3 Cranial nerves: Yes Equal, round and reactive pupils present Cognition (Neuro): normal cognition Extrem: Right upper extremity: normal to inspection Left upper extremit
--- NOTE | 2021-06-10 10:51 | PM.DS ---
DS: Admitting Diagnosis Discharge Date 06/10/21 Admitting Diagnosis Chest pain DS: Discharge Diagnosis Discharge Diagnosis (1) Non-ST elevation GA (NSTEMI): Code(s): I21.4 - Non-ST elevation (NSTEMI) myocardial infarction Status: Acute Assessment and Plan: Patient is a 45-year-old man with a history of tobacco abuse, family history of sudden of his father at 37 years old believed to be from a heart attack, who presented to the emergency room with sudden chest pain with associated nausea, diaphoresis, with radiation into his jaw. The patient had been resting on his couch after dinner and suddenly developed some chest discomfort and did not feel well. His symptoms became worse with nausea and diaphoresis and became worried and he was brought to the emergency room for further evaluation. The patient was given a nitro patch, aspirin and morphine that he received in the ER with improvement of his chest discomfort. Serial troponin cornelio to 4.5 suggestive of acute coronary syndrome/non ST elevation GA. he was started on a heparin drip, aspirin and was mildly bradycardic so will avoid beta-blockade. Cardiology was consulted and performed a cardiac catheterization which showed 99% blockage of the RCA and a stent was placed to this area. Patient was evaluated overnight and is feeling well this morning. Cardiology started him on Brilinta, Lipitor, Lopressor, and aspirin daily. Recommend follow-up with cardiology in the next few weeks. Follow-up with PCP in 1 week. Return to ER warnings given. Patient understands and agrees the plan all questions answered. CTA of his chest when he arrived showed Acute right lower lobe pulmonary embolism, the patient had had a negative D-dimer so I am not sure why a CT of his chest was performed. After discussing with the cardiology team they do not feel he has a pulmonary embolism at this time. They do not recommend treating with Eliquis or Xarelto. They only recommended Brilinta and aspirin at this time. Informed the patient of return to ER warnings or PE symptoms. He does not report any symptoms similar to have an acute PE. (2) Mass: Status: Acute Assessment and Plan: CTA Chest showed 1.9 cm mass in right tracheoesophageal groove. The differential diagnosis includes thyroid nodule and parathyroid adenoma. Correlate for laboratory evidence of hyperparathyroidism. The patient's calcium level is completely normal, vitamin-D is normal, TSH is normal, PTH intact is normal Pending results on PTH related protein and ionized calcium Informed the patient needs to follow-up with his primary care provider for further evaluation within 1 week (3) Pulmonary embolism: Code(s): I26.99 - Other pulmonary embolism without acute cor pulmonale Status: Acute Assessment and Plan: Pulmonary embolism has been ruled out after discussing with Cardiology. He will not be treated for an acute PE. (4) Chest pain: Code(s): R07.9 - Chest pain, unspecified Status: Acute (5) Elevated troponin: Code(s): R77.8 - Other specified abnormalities of plasma proteins Status: Acute DS: Summary Hospital Course Reason for hospitalization: Hospital Course: See above Status at Discharge Cognitive/behavioral status at discharge: Stable, improved. Time Spent with Patient Time attestation: Total time spent providing and/or coordinating discharge services: Time spent: Greater than 30 minutes Exam Narrative: General: 45-year-old man sitting up on the side of the bed talking to his . Appears comfortable. In no acute distress. Skin: No jaundice or cyanosis. Good skin turgor. Neck: Full range of motion. Supple. Respiratory: Lungs are clear to auscultation bilaterally. No wheezing, rales or rhonchi. No bony chest wall tenderness. Cardiovascular: The heart has a regular rate and rhythm without murmur. Tele shows NSR rate 64 bpm. Upper e
--- NOTE | 2021-06-10 16:13 | PC.NURSE ---
On 06/10/21, the student, Eva ULRICH, provided care and completed [email or web address] documentation on this patient. I have reviewed the student's documentation and agree with the findings.
[2021-06-12 07:58] LABS: Ionized Calcium 5.4 mg/dL (4.8-5.6)
[2021-06-14 22:47] LABS: Parathyroid Hormone Related Pr 8 pg/mL (11-20)
--- NOTE | 2021-06-18 10:37 | PC.NURSE ---
Platlet related protein is low at 8. Results faxed to NANCY Quintero.
== END 2021-06-10 11:47 | disposition home or self-care (01) | DRG 247 ==
LOC: ANHED 06-08 04:26 → ANHIMU 06-08 07:37
PROVIDERS: Internal Medicine; Internal Medicine Cardiovascular Disease; Admitting Provider Internal Medicine; Emergency Provider Emergency Medicine; PCP Physician Assistant; Visit Provider Physician Assistant
PROC: 4A023N7 Measurement of Cardiac Sampling and Pressure, Left Heart, Percutaneous Approach (ICD-10-PCS; CPT 93452; principal; 2021-06-09 09:00)
PROC: 027034Z Dilation of Coronary Artery, One Artery with Drug-eluting Intraluminal Device, Percutaneous Approach (ICD-10-PCS; 2021-06-09 09:00)
PROC: 027034Z Dilation of Coronary Artery, One Artery with Drug-eluting Intraluminal Device, Percutaneous Approach (ICD-10-PCS; 2021-06-09 09:00)
DX: I21.4 Non-ST elevation (NSTEMI) myocardial infarction (principal); I25.10 Atherosclerotic heart disease of native coronary artery without angina pectoris; F41.9 Anxiety disorder, unspecified; F17.290 Nicotine dependence, other tobacco product, uncomplicated; R93.89 Abnormal findings on diagnostic imaging of other specified body structures
CPT/HCPCS: 36415; 71046; 71275; 80048; 80053; 80061; 80076; 82306; 82330; 82948; 83519; 83690; 83970; 84443; 84484; 85025; 85027; 85380; 85610; 85730; 93005; 93306; 93458; 93970; 96365; 96366; 96375; 99291; A9270; C1725; C1760; C1769; C1874; C1887; C1894; C9600; G0269; G0378; J0583; J1644; J2250; J2270; J3010; J7030; J7040; Q9967

== ENCOUNTER 2021-07-03 09:53 | Outpatient (CLI) | payer BC, SELFPAY ==
--- NOTE | ~2021-07-03 | US_ITS ---
EXAMINATION: US soft tissue head and neck DATE: 07/03/2021 10:37 INDICATION: Right neck mass. TECHNIQUE: Multiple ultrasound images of the thyroid were obtained. COMPARISON: Chest CT 06/08/2021 FINDINGS: The thyroid is normal in size. In the inferior right thyroid lobe, there is a 15 mm solid, hypoechoic , [id number]-[id number]-[id number] nodule with ill-defined margin without echogenic foci (TI-RADS TR4). IMPRESSION: 1. Right thyroid nodule. Ultrasound-guided fine-needle aspiration is recommended. Reviewed, dictated and finalized at location A. SFERRER IMPRESSION: 1. Right thyroid nodule. Ultrasound-guided fine-needle aspiration is recommende dDinesh
== END 2021-07-03 09:54 | disposition home or self-care (01) ==
LOC: ANHIMG 09:58
PROVIDERS: PCP Physician Assistant; Visit Provider Physician Assistant
DX: R22.1 Localized swelling, mass and lump, neck (principal); E04.1 Nontoxic single thyroid nodule
CPT/HCPCS: 76536

== ENCOUNTER 2021-07-30 07:15 | Outpatient (RCR) | payer BC, SELFPAY ==
[2021-07-10 11:55] VITALS: BP 108/60; PULSE 57; RESP 16; O2SAT 96
[2021-07-10 12:00] VITALS: PULSE 57
== END 2021-07-30 08:53 | disposition home or self-care (01) ==
LOC: ANHCPREHAB 07:15
PROVIDERS: PCP Physician Assistant; Visit Provider Internal Medicine Cardiovascular Disease
DX: Z95.5 Presence of coronary angioplasty implant and graft (principal)
CPT/HCPCS: 93798

== ENCOUNTER 2021-08-24 11:11 | Emergency (ER) | payer BC, SELFPAY ==
[2021-08-24 11:32] VITALS: BP 121/80; PULSE 70; RESP 20; TEMP 36.4; O2SAT 100
--- NOTE | 2021-08-24 11:48 | ED.SKABFB ---
HPI - Skin/Abscess/Foreign Bdy General Chief complaint: Skin/Abscess/Foreign Body Stated complaint: Abscess on chest History of Present Illness HPI narrative: This is a 46 year old male that present to the urgent care with a abscess on the chest walk warm to touch. Patient states that he has been squeezing it and he is worried and wanted to make sure that it is nothing else. Patient states he has been placing his hands all over it. Related Data Home Medications Medication Instructions Recorded Confirmed alprazolam 0.5 mg PO BID PRN 06/08/21 06/08/21 Allergies Allergy/AdvReac Type Severity Reaction Status Date / Time No Known Allergies Allergy Verified 08/24/21 11:26 Review of Systems Review of Systems: chest wall knot with swelling All systems reviewed & are unremarkable except as noted in HPI and below PMFSH Past Medical History Medical History (Updated 08/24/21 @ 12:03 by Arden Scott NP) Anxiety Family History Family History (Updated 07/10/21 @ 11:26 by Wanda Forbes RN) Mother Patient's mother is in good health Father Acute myocardial infarction Social History Social History (System 06/23/21 @ 09:16 by Rufina Alarcon) Smoking packs per day: 1 Smoking cigarettes per day: 20.0 Years smoked: 16 Smoking pack-years: 16.00 Smoking status: Former smoker Tobacco type: cigarettes Smoking end date: 08/01/18 Additional smoking assessment comments: pt continues to vape with nicotine some days states at the lowest dosage. Alcohol intake: current Drinks per week: 6 Substance use: never Spiritual care concerns: No Comments At time as signature, I have reviewed and agree with nursing past medical, social, surgical and family history. Please see nursing chart for further information. There is no relevant family history pertinent to the presenting complaint. Exam Narrative: GENERAL:Well-appearing, well-nourished, and in no acute distress. HEAD:Normocephalic, atraumatic. EYES: PERRLA ENT: Nares clear, CHEST: . No respiratory distress. Nodule midline chest wall with warmth and erythema no bogginess noted. ABDOMEN: Soft, nontender, nondistended, normal active bowel sounds. EXTREMITIES: Normal range of motion. No edema. SKIN: Warm, dry, no rash. NEURO: No focal deficits. Alert and oriented x3. Course Course Level of Care: Express Care Visit Vital Signs Vital signs: Vital Signs Temperature 97.6 F 08/24/21 11:32 Pulse Rate 70 08/24/21 11:32 Respiratory Rate 20 08/24/21 11:32 Blood Pressure 121/80 08/24/21 11:32 Pulse Oximetry 100 08/24/21 11:32 Temperature 97.6 F 08/24/21 11:32 Pulse Rate 70 08/24/21 11:32 Respiratory Rate 20 08/24/21 11:32 Blood Pressure 121/80 08/24/21 11:32 Pulse Oximetry 100 08/24/21 11:32 MDM - Skin/Abscess/Foreign Bdy Differential Diagnosis Differential diagnosis: Likely abscess of skin or subcutaneous tissue, urticaria, allergic reaction to drug and cellulitis Discharge Plan Discharge Clinical Impression: Abscess Patient Disposition: Home, Self-Care Condition: Stable Instructions: Antibiotic Form, Abscess (ED), Abscess Follow-up (ED) Additional Instructions: Warm compresses to the area 20-30 minutes 4-6 times a day and as needed elevate the area if possible antibiotic as directed--finish the medicine tylenol/ibuprofen for as needed for pain Return to the office or seek ER visit if the conditions worsen with symptoms of infection include red streaking, swelling, drainage, high fever and severe pain Use the medication as provided for severe pain--cautiion drowsiness--do not drink alcohol or drive with these medications. caution each tablet contains 325 mg of Tylenol--the maximum dose of Tylenol is 4000 mg in 24 hours. This medication may cause constipation consider starting a laxative at this time watch for increasing infection--redness, swelling, drainage if the wound was
== END 2021-08-24 12:24 | disposition home or self-care (01) ==
PROVIDERS: Emergency Provider Nurse Practitioner Family; PCP Physician Assistant
DX: L02.213 Cutaneous abscess of chest wall (principal); F17.290 Nicotine dependence, other tobacco product, uncomplicated; F41.9 Anxiety disorder, unspecified
CPT/HCPCS: 99213; G0463

== ENCOUNTER 2021-10-21 09:57 | Outpatient (CLI) | payer BC, SELFPAY | END 2021-10-21 09:58 | disposition home or self-care (01) | LOC: ANHAUDASC 09:58 | PROVIDERS: PCP Physician Assistant; Visit Provider Nurse Practitioner Family | DX: H93.13 Tinnitus, bilateral (principal); H90.42 Sensorineural hearing loss, unilateral, left ear, with unrestricted hearing on the contralateral side | CPT/HCPCS: 92557; 92567 ==

== ENCOUNTER 2022-04-13 09:55 | Outpatient (CLI) | payer BC, SELFPAY ==
--- NOTE | ~2022-04-13 | US_ITS ---
EXAMINATION: US FNA w image guidance DATE: 04/13/2022 11:20 INDICATION: Nontoxic single thyroid nodule TECHNIQUE: A time-out was performed to verify the patient's name, date of , and procedure to be performed . The procedure and its benefits and risks were discussed with the patient. Risks specifically discus sed included bleeding and infection. The patient understood the risks and agreed to proceed. The neck was prepped and draped in the usual sterile manner. 3 mL 1% lidocaine was used for local anesthesia . 6 passes were made with a 25G needle into the lesion. Appropriate needle location was documented with continuous sonographic guidance. A sterile bandage was applied. There were no immediate compli cations. FINDINGS: Grayscale ultrasound images demonstrate biopsy needles advanced into a 1.9 x 1.6 x 1.6 cm solid hypoe choic nodule at the deep lower pole of the right thyroid. IMPRESSION: 1. Successful ultrasound-guided fine needle aspiration of a 1.9 cm right thyroid nodule. Reviewed, dictated and finalized at location A. IMPRESSION: 1. Successful ultrasound-guided fine needle aspiration of a 1.9 cm right thyro id nodule.
== END 2022-04-13 09:56 | disposition home or self-care (01) ==
PROVIDERS: PCP Physician Assistant; Visit Provider Nurse Practitioner Family
DX: E04.1 Nontoxic single thyroid nodule (principal)
CPT/HCPCS: 10005; 88173; 88305

== ENCOUNTER 2022-11-02 01:26 | Day surgery (SDC) | payer BC, SELFPAY ==
[2022-10-26 12:04] VITALS: BMI 42.5
--- NOTE | 2022-10-27 08:29 | PC.NURSE ---
Clearance letter sent to DR. Farrar office to hold Plavix for procedure, note received from office indicated that patient was to discontinue Plavix after last office visit on 09/23/2022. I called office and spoke with Dalila SEXTON and notified her pt. mistakenly stopped his Atorvastatin and was still taking his Plavix. She indicated she would call patient and talk with him about this. I called pt this am and he confirmed he had spoked to her yesterday and he had mixed the meds up. He is no longer taking the plavix and is back to taking atorvastatin 80mg daily.
[2022-11-02 07:43] VITALS: BP 130/83; PULSE 82; RESP 18; TEMP 36.5; O2SAT 96
[2022-11-02] MEDS: LACTATED RINGERS 1,000 ML 150 ML IV CONT (07:53)
--- NOTE | 2022-11-02 08:30 | PM.HPGS ---
History of Present Illness History of Present Illness Consent: Risks, benefits, and alternatives have been discussed and questions answered. Patient agrees to proceed with procedure. Chief complaint: neoplasm screening Narrative: Doug Corbett is a 47 year old male here for first screening colonoscopy Review of Systems Constitutional: Constitutional: Denies headache(s) and Denies weakness Eyes: Eyes: Denies blurry vision ENT: Reports Normal hearing present, Denies headache(s) and Denies neck pain Cardiovascular: Cardiovascular: Denies chest pain and Denies dyspnea Respiratory: Respiratory: Denies dyspnea Gastrointestinal: Gastrointestinal: Reports no additional gastrointestinal complaints Genitourinary: Genitourinary: Denies dysuria Musculoskeletal: Musculoskeletal: Denies neck pain Integumentary/Breasts: Skin/Breast: Denies dry skin Neurologic: Reports Normal hearing present, Denies headache(s) and Denies weakness Psychiatric: Psychiatric: Denies anxiety Endocrine: Endocrine: Denies change in body appearance Hematologic/Lymphatic: Hematologic/Lymphatic: Denies easy bleeding Allergic/Immunologic: Allergic/Immunologic: Denies urticaria [facility] Past Medical History Medical History (Updated 11/02/22 @ 08:30 by Ortega Sánchez MD) Anxiety Colon cancer screening Family History Family History (Updated 07/10/21 @ 11:26 by Wanda Forbes RN) Mother Patient's mother is in good health Father Acute myocardial infarction Social History Social History (System 06/23/21 @ 09:16 by Rufina Alarcon) Smoking packs per day: 1.5 Smoking cigarettes per day: 30.0 Years smoked: 20 Smoking pack-years: 30.00 Smoking status: Former smoker Tobacco type: cigarettes and e-cigarettes/vaping Smoking end date: 08/01/18 Additional smoking assessment comments: STOPPED VAPING 2021 Alcohol intake: current Drinks per week: 12 Alcohol use details: BEERS/DRINKS Substance use: never Substance use type: does not use Living arrangements: with family Spiritual care concerns: No Meds Home Medications and Allergies Home Medications Medication Instructions Recorded Confirmed Type alprazolam 0.5 mg tablet 0.5 mg PO BID PRN Anxiety 06/08/21 11/02/22 History aspirin 81 mg tablet,delayed 81 mg PO QAM #30 tabs 06/10/21 11/02/22 Rx release azelastine 137 mcg (0.1 %) nasal 1 spray intranasal BID PRN Allergy 10/26/22 11/02/22 History spray aerosol Symptoms citalopram 20 mg tablet 20 mg PO DAILY 10/26/22 11/02/22 History omega 1-ypw-jis-fish oil 1,200 mg 2 cap PO DAILY 10/26/22 11/02/22 History (144 mg-216 mg) capsule (Fish Oil) vibegron 75 mg tablet (Gemtesa) 75 mg PO DAILY 10/26/22 11/02/22 History atorvastatin 80 mg tablet 80 mg PO DAILY 10/27/22 11/02/22 History Allergies Allergy/AdvReac Type Severity Reaction Status Date / Time blue cheese AdvReac Intermediate Gastrointestinal Uncoded 11/02/22 07:42 Upset Vital Signs Vital Signs - 24 hr 11/02/22 07:43 Temperature 97.7 F Pulse Rate 82 Respiratory Rate 18 Blood Pressure 130/83 Pulse Oximetry 96 Oxygen Delivery Room Air Exam Const: General: comfortable and no acute distress HENMT: Face/Nose/Sinus: Normal nares present Eyes: General: appearance normal, both eyes and all related structures Neck: Neck: no JVD Resp: Auscultation: clear to auscultation bilaterally Cardio: Rate: regular rate Rhythm: regular rhythm GI: Inspection: non-distended GI Palp: Yes Soft to palpation Skin: General skin exam: normal color Neuro: General: gait normal Speech: normal speech Extrem: General: normal to inspection Psych: Mental Status: mental status grossly normal Assessment and Plan Assessment and plan (1) Colon cancer screening: Code(s): Z12.11 - Encounter for screening for malignant neoplasm of colon Status: Acute Assessment and Plan: colonoscopy
--- NOTE | 2022-11-02 08:32 | P.PNAN_ITS ---
Anes - Initial Pre Proc Eval Procedure: Operation Date: 11/02/22 09:00 Proposed Procedures p Screening Colonoscopy - Ortega Sánchez MD Date/Time: 11/02/22 08:32 Surgeon: Ortega Sánchez MD Pre Op Diagnosis: neoplasm screening Patient Data Age: 47 Gender: M Height: 1.71 m Weight: 126.4 kg Last Vital Signs Temp 97.7 F 11/02/22 07:43 Pulse 82 11/02/22 07:43 Resp 18 11/02/22 07:43 BP 130/83 11/02/22 07:43 Pulse Ox 96 11/02/22 07:43 O2 Del Method Room Air 11/02/22 07:43 Allergies Allergy/AdvReac Type Severity Reaction Status Date / Time blue cheese AdvReac Intermediate Gastrointestinal Uncoded 11/02/22 07:42 Upset Home Medications Medication Instructions Recorded Confirmed Type alprazolam 0.5 mg tablet 0.5 mg PO BID PRN Anxiety 06/08/21 11/02/22 History aspirin 81 mg tablet,delayed 81 mg PO QAM #30 tabs 06/10/21 11/02/22 Rx release azelastine 137 mcg (0.1 %) nasal 1 spray intranasal BID PRN Allergy 10/26/22 11/02/22 History spray aerosol Symptoms citalopram 20 mg tablet 20 mg PO DAILY 10/26/22 11/02/22 History omega 4-wja-zoq-fish oil 1,200 mg 2 cap PO DAILY 10/26/22 11/02/22 History (144 mg-216 mg) capsule (Fish Oil) vibegron 75 mg tablet (Gemtesa) 75 mg PO DAILY 10/26/22 11/02/22 History atorvastatin 80 mg tablet 80 mg PO DAILY 10/27/22 11/02/22 History Patient hx anesthesia problems: none Family hx anesthesia problems: none Results Review: All pre-operative results and documents have been reviewed as part of the pre- operative evaluation. [facility] Past Medical History Medical History (Updated 11/02/22 @ 08:30 by Ortega Sánchez MD) Anxiety Colon cancer screening Family History Family History (Updated 07/10/21 @ 11:26 by Wanda Forbes RN) Mother Patient's mother is in good health Father Acute myocardial infarction Social History Social History (System 06/23/21 @ 09:16 by Rufina Alarcon) Smoking packs per day: 1.5 Smoking cigarettes per day: 30.0 Years smoked: 20 Smoking pack-years: 30.00 Smoking status: Former smoker Tobacco type: cigarettes and e-cigarettes/vaping Smoking end date: 08/01/18 Additional smoking assessment comments: STOPPED VAPING 2021 Alcohol intake: current Drinks per week: 12 Alcohol use details: BEERS/DRINKS Substance use: never Substance use type: does not use Living arrangements: with family Spiritual care concerns: No Anes - Eval Final PreProcedure Day of Procedure 11/02/22 08:32 Patient weight: morbidly obese Heart: regular rate and rhythm Lungs: clear to auscultation Airway: Mallampati scale class II Neurological: alert and oriented Last oral intake: >/= 8 hours ASA classification: III Emergent: no Anesthetic plan: proceed Anesthesia type and monitoring: general GIVS and standard monitoring Results Review: All pre-operative results and documents have been reviewed as part of the pre- operative evaluation. Informed Consent: The patient's anesthetic plan and its attendant risks and benefits were discussed with the patient/family/POA. Questions were solicited and answers provided to the satisfaction of the patient/family/P
[2022-11-02 08:55] VITALS: BP 116/71; PULSE 76; RESP 18; O2SAT 96
[2022-11-02 09:05] VITALS: BP 115/76; PULSE 72; RESP 22; O2SAT 97
[2022-11-02 09:15] VITALS: BP 121/71; PULSE 77; RESP 19; O2SAT 98
== END 2022-11-02 09:30 | disposition home or self-care (01) ==
PROVIDERS: PCP Physician Assistant; Visit Provider Internal Medicine Gastroenterology
PROC: 0DJD8ZZ Inspection of Lower Intestinal Tract, Via Natural or Artificial Opening Endoscopic (ICD-10-PCS; CPT 45378; principal; 2022-11-02 09:00)
DX: Z12.11 Encounter for screening for malignant neoplasm of colon (principal); D12.2 Benign neoplasm of ascending colon; K63.5 Polyp of colon; K57.30 Diverticulosis of large intestine without perforation or abscess without bleeding; F41.9 Anxiety disorder, unspecified; Z87.891 Personal history of nicotine dependence; E66.01 Morbid (severe) obesity due to excess calories; Z68.41 Body mass index [BMI] 40.0-44.9, adult
CPT/HCPCS: 45385; 88305; J2704; J7120

== ENCOUNTER 2023-07-23 16:50 | Emergency (ER) | payer BC, SELFPAY ==
--- NOTE | 2023-07-23 17:51 | ED.BACK ---
HPI - Back Pain/Injury General Chief Complaint: Back Pain/Injury Stated Complaint: back pain Time Seen by Provider: 07/23/23 17:46 Source: patient Mode of arrival: ambulatory Limitations: no limitations History of Present Illness HPI Narrative: Doug is a 48-year-old male patient presenting to the clinic today with complaints of right upper back/rib pain for the past week. He reports he seen his chiropractor twice and the chiropractor feels as though he has an inflamed nerve. He contacted his primary care provider and they ordered him a Medrol Dosepak. He is on day 4 of the Dosepak. States that his symptoms are not necessarily improving. Related Data Home Medications Medication Instructions Recorded Confirmed alprazolam 0.5 mg tablet 0.5 mg PO BID PRN Anxiety 06/08/21 11/02/22 azelastine 137 mcg (0.1 %) nasal 1 spray intranasal BID PRN Allergy 10/26/22 11/02/22 spray aerosol Symptoms citalopram 20 mg tablet 20 mg PO DAILY 10/26/22 11/02/22 omega 5-qdc-spe-fish oil 1,200 mg 2 cap PO DAILY 10/26/22 11/02/22 (144 mg-216 mg) capsule (Fish Oil) vibegron 75 mg tablet (Gemtesa) 75 mg PO DAILY 10/26/22 11/02/22 atorvastatin 80 mg tablet 80 mg PO DAILY 10/27/22 11/02/22 methylprednisolone 4 mg tablets in mg 07/23/23 a dose pack Allergies Allergy/AdvReac Type Severity Reaction Status Date / Time blue cheese AdvReac Intermediate Gastrointestinal Uncoded 11/02/22 07:42 Upset Review of Systems Review of Systems: Pertinent positives per HPI. Patient denies any fever, chills, rash, headache, visual changes, dizziness, cough, runny nose, sore throat, shortness of breath, chest pain, palpitations, nausea, vomiting, diarrhea, constipation, abdominal pain, or any urinary issues. [facility] Past Medical History Medical History Anxiety Colon cancer screening Family History Family History Mother Patient's mother is in good health Father Acute myocardial infarction Social History Social History Smoking packs per day: 1.5 Smoking cigarettes per day: 30.0 Years smoked: 20 Smoking pack-years: 30.00 Smoking status: Former smoker Tobacco type: cigarettes and e-cigarettes/vaping Smoking end date: 08/01/18 Additional smoking assessment comments: STOPPED VAPING 2021 Alcohol intake: current Drinks per week: 12 Alcohol use details: BEERS/DRINKS Substance use: never Substance use type: does not use Living arrangements: with family Spiritual care concerns: No Comments At the time of my signature, I reviewed and agree with the nursing past medical, surgical, social, and family history. There is no relevant family history pertinent to the patient complaint. Exam Narrative: General: Well-developed, well nourished, in no apparent distress Head: Normocephalic, atraumatic. Cardio: Regular rate and rhythm, s1 and s2 normal, no murmur appreciated. Resp: Clear to auscultation bilaterally, no rhonchi, rales, wheezing or rubs. Musculoskeletal: No deformity, tender to palpation over the right inferior trapezius musculature, grossly normal range of motion, muscle strength strong and equal, peripheral pulse strong, no edema, no cyanosis, normal gait and station Course Course Emergency Course: Portions of this record may have been created with voice recognition software. Level of Care: Express Care Visit Vital Signs Vital signs: Vital signs reviewed MDM - Back Pain/Injury MDM Narrative Medical decision making narrative: At the time of visit patient is resting comfortably on the exam table. Patient appears to be nontoxic. I suspect patient has a muscle strain to the trapezius musculature. Prescription for Flexeril was sent to pharmacy. Patient requesting pain medications . States he can not take NSAIDs due to h
[2023-07-23 18:22] VITALS: BP 117/82; PULSE 81; RESP 18; TEMP 36.4; O2SAT 99
== END 2023-07-23 18:51 | disposition home or self-care (01) ==
PROVIDERS: Emergency Provider Nurse Practitioner Family; PCP Physician Assistant
DX: S29.012A Strain of muscle and tendon of back wall of thorax, initial encounter (principal); Z87.891 Personal history of nicotine dependence; X58.XXXA Exposure to other specified factors, initial encounter
CPT/HCPCS: 99213; G0463

== ENCOUNTER 2023-07-27 08:47 | Outpatient (CLI) | payer BC, SELFPAY ==
--- NOTE | ~2023-07-27 | XR_ITS ---
EXAMINATION: XR lumbar spine 2-3V DATE: 07/27/2023 09:15 INDICATION: Low back pain. TECHNIQUE: 3 views of lumbar spine were obtained. COMPARISON: Lumbar spine radiograph 06/20/2011 FINDINGS: There is 7 degrees dextrocurvature of thoracolumbar spine. Vertebral body heights are tam l. There is mildly decreased disc height at L2-L3, L3-L4, and L4-L5. There is multilevel mild to mode rate facet joint osteoarthritis. IMPRESSION: 1. Mild lumbar spondylosis. Reviewed, dictated and finalized at location E. [facility] ONCOLOGY NURSE IMPRESSION: 1. Mild lumbar spondylosis.
== END 2023-07-27 08:48 ==
LOC: MICIMG 08:50
PROVIDERS: PCP Physician Assistant; Visit Provider Physician Assistant
DX: M47.896 Other spondylosis, lumbar region (principal)
CPT/HCPCS: 72100

== ENCOUNTER 2023-08-19 13:40 | Outpatient (CLI) | payer BC, SELFPAY ==
--- NOTE | ~2023-08-19 | XR_ITS ---
XR thoracic spine 3V DATE: 08/19/2023 14:12 INDICATION: Chest pain. Radiculopathy. TECHNIQUE: AP, lateral, swimmer views COMPARISON: None FINDINGS: There is diffuse osteopenia. No fracture or dislocation or bone destruction of the thoracic spine is evident. The thoracic pedicle s are intact. There is mild levoscoliosis of the upper thoracic spine and dextroscoliosis of the lower thoracic and lumbar spine. No paraspinal soft tissue thickening. IMPRESSION: Osteopenia and scoliosis Reviewed, dictated and finalized at location A. MIXER IMPRESSION: Osteopenia and scoliosis
--- NOTE | ~2023-08-19 | XR_ITS ---
[id number] DATE: 08/19/2023 14:12 INDICATION: Right chest pain. TECHNIQUE: PA views. Multiple views of right ribs. COMPARISON: None FINDINGS: No right rib fracture is detected. No pulmonary infiltrate or consolidation, pulmonary vas cular congestion or pleural effusion or pneumothorax. IMPRESSION: No significant abnormality Reviewed, dictated and finalized at Location A. Reviewed, dictated and finalized at location B. CIATE EDITOR IMPRESSION: No significant abnormality
== END 2023-08-19 13:41 ==
LOC: MICIMG 13:42
PROVIDERS: PCP Physician Assistant; Visit Provider Physician Assistant
DX: M54.14 Radiculopathy, thoracic region (principal); R07.81 Pleurodynia; M85.88 Other specified disorders of bone density and structure, other site; M41.9 Scoliosis, unspecified
CPT/HCPCS: 71101; 72072

== ENCOUNTER 2024-02-26 15:17 | Emergency (ER) | payer BC, SELFPAY ==
--- NOTE | 2024-02-26 15:24 | ED.SKABFB ---
HPI - Skin/Abscess/Foreign Bdy General Chief complaint: Skin/Abscess/Foreign Body Stated complaint: insect bite lt thigh Time Seen by Provider: 02/26/24 15:24 Source: patient Mode of arrival: ambulatory Limitations: no limitations History of Present Illness HPI narrative: 48-year-old male presents with complaint of redness, swelling to left thigh for 2-3 days. Concern for infection. Reports getting progressively worse. Denies itching, does not think is insect bite. All systems reviewed and negative except as noted above. Related Data Home Medications Medication Instructions Recorded Confirmed alprazolam 0.5 mg tablet 0.5 mg PO BID PRN Anxiety 06/08/21 11/02/22 azelastine 137 mcg (0.1 %) nasal 1 spray intranasal BID PRN Allergy 10/26/22 11/02/22 spray Symptoms citalopram 20 mg tablet 20 mg PO DAILY 10/26/22 11/02/22 omega 5-gly-brp-fish oil 1,200 mg 2 cap PO DAILY 10/26/22 11/02/22 (144 mg-216 mg) capsule (Fish Oil) vibegron 75 mg tablet (Gemtesa) 75 mg PO DAILY 10/26/22 11/02/22 atorvastatin 80 mg tablet 80 mg PO DAILY 10/27/22 11/02/22 methylprednisolone 4 mg tablets in mg 07/23/23 a dose pack Allergies Allergy/AdvReac Type Severity Reaction Status Date / Time blue cheese AdvReac Intermediate Gastrointestinal Uncoded 02/26/24 15:21 Upset Review of Systems Review of Systems: CONSTITUTIONAL: Denies fever, chills, or sweats. EYES: Denies visual changes, redness, or discharge. ENT: Denies rhinorrhea, congestion, sore throat, or otalgia. CARDIOVASCULAR: Denies chest pain, palpitations, or edema. RESPIRATORY: Denies cough or dyspnea. GASTROINTESTINAL: Denies abdominal pain, nausea, vomiting, or diarrhea. GENITOURINARY: Denies dysuria or hematuria. SKIN: Denies rash or itching. Reports redness, swelling to left thigh. MUSCULOSKELETAL: Denies back pain, joint pain, or myalgia. NEUROLOGIC: Denies headache, numbness, or weakness. PSYCHIATRIC: Denies anxiety or depression. All other systems reviewed are negative, except as documented in HPI. [facility] Past Medical History Medical History Anxiety Colon cancer screening Family History Family History Mother Patient's mother is in good health Father Acute myocardial infarction Social History Social History Smoking packs per day: 1.5 Smoking cigarettes per day: 30.0 Years smoked: 20 Smoking pack-years: 30.00 Smoking status: Former smoker Tobacco type: cigarettes and e-cigarettes/vaping Smoking end date: 08/01/18 Additional smoking assessment comments: STOPPED VAPING 2021 Alcohol intake: current Drinks per week: 12 Alcohol use details: BEERS/DRINKS Substance use: never Substance use type: does not use Living arrangements: with family Spiritual care concerns: No Comments At time of signature, agree with nursing past medical, surgical, social and family history. There is no relevant family history pertinent to the presenting complaint. Exam Narrative: GENERAL: This is a well-nourished, well-developed patient, in no apparent distress. HEAD: normocephalic, atraumatic. EYES: PERRL. Sclera clear/white. Vision is grossly intact. EARS: External ears normal NOSE: External nose normal NECK: Neck supple, non-tender without lymphadenopathy, masses or thyromegaly. CARDIOVASCULAR: Regular rate and rhythm without murmurs, gallops, or rubs. RESPIRATORY: Clear to auscultation. Breath sounds equal bilaterally. No wheezes, rales, or rhonchi. SKIN: warm, Dry, intact with no suspicious lesions or rash, good texture and turgor. scabbed center with 4cm induration. erythema and swelling approx. 9x12cm. no fluctuance concerning for abscess. NEURO: awake, alert, and oriented to person, place and time. There were no obvious focal neurologic abnormalities. EX
[2024-02-26 15:26] VITALS: BP 124/99; PULSE 92; RESP 16; TEMP 36.3; O2SAT 97
== END 2024-02-26 15:37 | disposition home or self-care (01) ==
PROVIDERS: Emergency Provider Nurse Practitioner Family; PCP Physician Assistant
DX: L03.116 Cellulitis of left lower limb (principal); Z87.891 Personal history of nicotine dependence; F41.9 Anxiety disorder, unspecified
CPT/HCPCS: 99213; G0463